=== PATIENT | male | born 1935 | race Caucasian/White ===

== ENCOUNTER 2016-10-07 00:56 | Inpatient (IN) | payer MEDICARE, BC ==
[~2016-10-07] VITALS: Ht 182.9 cm; Wt 81.5 kg
--- NOTE | ~2016-10-07 | CO ---
Unit #: [id number] #: [id number] Patient: YENNY BENJAMIN [id number] [place] [id number] [facility]. [place], [place] [address] [id number] I MR#: [id number] NAME: YENNY BENJAMIN. ROOM: [facility] Age: 81 Sex: M Admission Date: 10/07/2016 : 1935 Attending Physician: Rahul Rodriguez M.D. Primary Care Physician: Herman Kendall D.O. Consultation Date: 10/07/2016 CONSULTATION REPORT REASON FOR CONSULTATION Respiratory failure, mechanical ventilatory support. HISTORY OF PRESENT ILLNESS A 81-year-old gentleman with severe COPD with ongoing active tobacco use. He was hospitalized at [facility] on 09/04/2016. He apparently had been diagnosed with pneumonia, was on antibiotics, failed to improve. There is mention of congestive heart failure, diastolic and was treated and released. Since discharge, he apparently has had persistent shortness of breath. His shortness of breath worsened. EMS was called, he ultimately was intubated. He currently is sedated and cannot add to the history. Family member is present at bedside. He apparently lives alone and family takes charge checking on him. History is vague and he can only tell me a progressive shortness of breath. No definite history of fever, chest pain, hemoptysis, wheezing etc., again that date is unavailable. PAST MEDICAL HISTORY Remarkable for coronary artery disease with stent, peripheral vascular disease, hypertension, COPD, chronic respiratory failure with oxygen started 2 weeks ago, diastolic heart failure, chronic kidney disease, hyperlipidemia, and Quiroz esophagus. HOME MEDICATIONS Very difficult to truly identify. There is a list in the EHR that states Lipitor, Plavix, trazodone, Zyloprim, aspirin, Pulmicort mini-nebs, Zyrtec, Flovent Diskus, hydralazine, Vicodin, Lopressor, Remeron, Protonix, ProAir, Atrovent, Voltaren. There is a list of medicines from previous hospitalization that states he is on Stiolto and No mention of Flovent, so again very confusing on exactly what inhaled therapy he is on. ALLERGIES Morphine which gives rashes. SOCIAL HISTORY Lives alone. Family checks on him. He continues to smoke. His 3 months ago. FAMILY HISTORY Unobtainable. REVIEW OF SYSTEMS Unit #: [id number] #: [id number] Patient: YENNY BENJAMIN Unobtainable. PHYSICAL EXAMINATION GENERAL: Reveals a patient, who is currently on a Versed drip, sedated, but will occasionally wake up and pull it his restraints and pull it life supporting tubes. VITAL SIGNS: He is afebrile. Pulse is 86, respiratory rate is 28, and blood pressure is 160/97, 6 feet tall, 178 pounds. HEENT: Pupils are equal, round, and reactive to light. Sclerae anicteric. Head atraumatic. NECK: Supple. No supraclavicular or cervical adenopathy appreciated. He is orally intubated and has an orogastric tube. CHEST: Markedly decreased breath sounds. No definite crackles or wheeze. Flow volume loops on the ventilator show no definite air flow obstruction. CARDIAC: Reveals distant heart tones. Regular rate and rhythm. No definite pathologic murmur, rub, or gallop. ABDOMEN: Soft and nontender. No hepatomegaly or rebound. EXTREMITIES: Reveal no clubbing, cyanosis, or edema. Capillary blush is delayed. Calves are nontender. NEUROLOGIC: He is sedated; however, he does move all 4s spontaneously. SKIN: Warm and dry. DIAGNOSTIC STUDIES IMAGING STUDIES: Chest x-ray with some coarse interstitial markings, no definite pneumonic infiltrate. LABORATORY RESULTS: Arterial blood gas originally pH 7.23, pCO2 of 56, pO2 of 138. Currently, he has a pH is 7.35, pCO2 of 45, pO2 of 66 on assist control 16, breathing 26, tidal volume of 550, 60%, 5 of PEEP. His FiO2 has been increased to 70%, I presume by RT. BUN is 16, creatinine is 1.4. Troponin mildly elevated at 0.12. BNP is 392. Lactic acid 1.8. Procalcitonin 0.14. INR was normal. White blood cell count was 24, now 15.8; hemoglobin 11.9; platelet count normal. Urinalysis; 2+ protein, no significant pyuria or hematuria. Blood cultures are pending. Sputum is pending receipt. The urine has not been sent for culture. Rhythm strips; sinus. He has biatrial enlargement. No definite acute ischemic changes. IMPRESSION 1. Acute on chronic respiratory failure at this point, unclear etiology. It could be as somewhat worsening diastolic heart failure. 2. Chronic obstructive pulmonary disease with ongoing active tobacco use. 3. Poor database. 4. Chronic respiratory failure, apparently oxygen was started 2 weeks ago. 5. Coronary artery disease with diastolic heart failure per previous records. 6. Peripheral vascular disease. 7. Chronic kidney disease. 8. Possible depression per family as his 3 months ago. 9. Medical problems listed above. PLAN Mechanical ventilatory support. Antibiotics for now. Airways disease. Echocardiogram has been performed and those results to be followed up. I will ask for a noncontrast CT scan of the chest and lower extremity venous Dopplers. I will try to adjust his sedation in order to decrease delirium and increase the chance of appropriate weaning. Certainly, we will need to improve database and review all of his inhaled medicines at the time of discharge. Unit #: [id number] #: [id number] Patient: YENNY BENJAMIN Thank you very much for allowing me to participate in the care of Mr. Benjamin. Dictated by... Celio Kim M.D. JASMYN/lynne TD: 10/07/2016 16:11 JOB #: [id number] CONSULTATION REPORT Page 1 of 1 X Celio Kim MD X CONSULTATION REPORT
--- NOTE | ~2016-10-07 | US84 ---
[id number] [facility] [address] [facility] [address] [place], [place] [address] [id number] I MR#: [id number] Acc #: [id number] NAME: YENNY BENJAMIN : 1935 SEX: M STUDY DATE/TIME: 10/07/2016 19:17 UNIT: [facility] ROOM: [facility] STUDY DESCRIPTION: US LE Veins Complete Jeff Stdy Attending Physician: Rahul Rodriguez M.D. Ordering Physician: Shorty Tony D.O. Primary Care Physician: Herman Kendall D.O. MEDICAL IMAGING REPORT This report is preliminary unless electronic signature is present EXAM Bilateral lower extremity venous ultrasound. HISTORY Bilateral lower extremity swelling for 3 days. FINDINGS Ultrasound examination of the lower extremity veins was performed from the groin to the calf bilaterally with bowser-scale, color Doppler and spectral Doppler evaluation. No DVT or SVT is identified. The visualized veins are patent and compressible. The right peroneal vein was not visualized. IMPRESSION Negative examination. Dictated by... Darrel Yoder M.D. THIS IS AN ELECTRONICALLY VERIFIED REPORT Darrel Yoder M.D. at 10/08/2016 11:03 PM DFRee/bright TD: 10/08/2016 06:11 JOB #: [id number] MEDICAL IMAGING REPORT Page 1 of 1 COPY
--- NOTE | ~2016-10-07 | CR72 ---
[facility] A Service of [facility] & [facility] RADIOLOGY TEXT RESULTS PATIENT: YENNY BENJAMIN LOCATION: [place] [id number] : 37 UNIT #: [id number] AGE: [address]: EDA SCHMITZ V SEX: M ORDER DR: [id number] [facility] [address] [facility]. [place], [place] [address] [id number] I MR#: [id number] Acc #: [id number] NAME: YENNY BENJAMIN. : 1935 SEX: M STUDY DATE/TIME: 10/08/2016 5:31 UNIT: [facility] ROOM: [facility] STUDY DESCRIPTION: CR Chest Single View Portable Attending Physician: Eda Schmitz M.D. Ordering Physician: Celio Kim M.D. Primary Care Physician: Herman Kendall D.O. MEDICAL IMAGING REPORT This report is preliminary unless electronic signature is present EXAM Portable chest INDICATIONS Respiratory failure follow up. PROCEDURE Frontal view chest. COMPARISON STUDIES 10/07/2016 FINDINGS Mild cardiomegaly. Interstitial coarsening is stable. No new dense consolidation. No visible pneumothorax. Dictated by... Chris Naqvi M.D. THIS IS AN ELECTRONICALLY VERIFIED REPORT Chris Naqvi M.D. at 10/08/2016 9:53 PM YONID/zane TD: 10/08/2016 12:13 JOB #: [id number] MEDICAL IMAGING REPORT Page 1 of 1 COPY
--- NOTE | ~2016-10-07 | CT57 ---
[facility] A Service of [facility] & [facility] RADIOLOGY TEXT RESULTS PATIENT: YENNY BENJAMIN LOCATION: [address] : 37 UNIT #: [id number] AGE: [address]: EDA SCHMITZ V SEX: M ORDER DR: [id number] [facility] [address] [facility]. [place], [place] [address] [id number] I MR#: [id number] Acc #: [id number] NAME: YENNY BENJAMIN : 1935 SEX: M STUDY DATE/TIME: 10/07/2016 15:17 UNIT: [facility] ROOM: [facility] STUDY DESCRIPTION: CT Chest Wo Cont Attending Physician: Eda Schmitz M.D. Ordering Physician: Celio Kim M.D. Primary Care Physician: Herman Kendall D.O. MEDICAL IMAGING REPORT This report is preliminary unless electronic signature is present EXAM CT chest without contrast HISTORY Shortness of air, onset today, concern for pneumonia. History of AAA repair 2003 and cardiac stents. FINDINGS Axial images performed through the chest without contrast. Multiplanar reconstructed images reviewed at a workstation. This CT exam was performed with one or more of the following radiation dose reduction techniques: Automatic exposure control, adjustment of mA and/or kV according to patient size, and iterative reconstruction. Examination demonstrates marked hyperinflation with areas of patchy hyperlucency and thickening in the interlobular septa compatible with underlying emphysema and fibrosis. No acute airspace disease or consolidation, no effusions. No mass lesions. Mild tracheobronchomegaly. Patient is intubated with the tube in expected position. Heart size within normal limits. Coronary and aortic atherosclerotic changes noted. Nasogastric tube noted within the stomach. The upper abdomen remarkable for a partially visualized endoluminal stent grafting of an abdominal aortic aneurysm. Mild aneurysmal dilatation of the proximal abdominal aorta. Nasogastric tube noted within the stomach. Mild scoliosis. IMPRESSION 1. No acute airspace disease or consolidation to suggest pneumonia. 2. Severe emphysema and fibrosis, which may be a contributing factor to the patient's symptoms. Patient also demonstrates evidence of chronic bronchitis. STS. [facility] A Service of [facility] & [facility] RADIOLOGY TEXT RESULTS PATIENT: YENNY BENJAMIN LOCATION: [address] : 37 UNIT #: [id number] AGE: [address]: EDA SCHMITZ V SEX: M ORDER DR: Dictated by... Lizbeth Marcus M.D. THIS IS AN ELECTRONICALLY VERIFIED REPORT Lizbeth Marcus M.D. at 10/08/2016 7:29 AM Malini TD: 10/07/2016 23:37 JOB #: [id number] MEDICAL IMAGING REPORT Page 1 of 1 COPY
--- NOTE | ~2016-10-07 | CR72 ---
[facility] A Service of [facility] RADIOLOGY TEXT RESULTS PATIENT: YENNY BENJAMIN LOCATION: [address] : 37 UNIT #: [id number] AGE: [address]: EDA SCHMITZ V SEX: M ORDER DR: [id number] [facility] [address] [facility]. [place], [place] [address] [id number] I MR#: [id number] Acc #: [id number] NAME: YENNY BENJAMIN. : 1935 SEX: M STUDY DATE/TIME: 10/07/2016 1:16 UNIT: [facility] ROOM: [facility] STUDY DESCRIPTION: CR Chest Single View Portable Attending Physician: Eda Schmitz M.D. Ordering Physician: Shorty Tony D.O. Primary Care Physician: Herman Kendall D.O. MEDICAL IMAGING REPORT This report is preliminary unless electronic signature is present EXAM Portable chest INDICATION Respiratory distress tonight. PROCEDURE Frontal view chest. COMPARISON 08/31/2012. FINDINGS Mild cardiomegaly similar to the previous study. Chronic-appearing interstitial coarsening both lungs. No dense consolidation. There is an ET tube in place distal tip is approximately 8.8 cm above the jesusita positioned at the thoracic inlet. No pneumothorax. IMPRESSION 1. Chronic-appearing interstitial coarsening and cardiomegaly. 2. ET tube is at the thoracic inlet. Dictated by... Chris Naqvi M.D. THIS IS AN ELECTRONICALLY VERIFIED REPORT Chris Naqvi M.D. at 10/07/2016 9:59 PM EED/dianelys TD: 10/07/2016 09:53 JOB #: [id number] [facility] A Service [facility] RADIOLOGY TEXT RESULTS PATIENT: YENNY BENJAMIN LOCATION: [place] [address] : 37 UNIT #: [id number] AGE: [address]: EDA SCHMITZ V SEX: M ORDER DR: MEDICAL IMAGING REPORT Page 1 of 1 COPY
--- NOTE | ~2016-10-07 | DS ---
Unit #: [id number] #: [id number] Patient: YENNY BENJAMIN [id number] [address] [place], [place] [address] [id number] I MR#: [id number] NAME: YENNY BENJAMIN. ROOM: [facility] Age: 81 Sex: M Admission Date: 10/07/2016 : 1935 Discharge Date: 10/10/2016 Attending Physician: Rahul Rodriguez M.D. Primary Care Physician: Herman Kendall D.O. DISCHARGE SUMMARY DISCHARGE DIAGNOSES 1. Acute on chronic respiratory failure. 2. Hypertension. 3. Coronary artery disease with history of angioplasty in the past. 4. Peripheral vascular disease. 5. Chronic kidney disease. 6. Hyperlipidemia. 7. Chronic obstructive pulmonary disease. CONSULTATIONS Pulmonary consult, Dr. Kim. HOSPITAL COURSE This is a 81-year-old male who was admitted on 10/07/2016 with increasing shortness of air, gradually getting worse. EMS was initially called. A CPAP trial was given. He failed the CPAP trial. Subsequently he was intubated and brought into the emergency room where he was very hypertensive, also. He was treated with IV antibiotics, IV Solu-Medrol, seen by pulmonary and subsequently extubated successfully. He is stable at this time to be discharged home to be followed by pulmonary and primary care physician as an outpatient. HOME MEDICATIONS ON DISCHARGE 1. Albuterol sulfate 2 puffs q.6 hours. 2. Budesonide 0.5 mg inhalation daily. 3. Flovent 1 spray inhalation daily. 4. Remeron 15 mg daily. 5. Trazodone 50 mg at bedtime. 6. Zyrtec 10 mg daily. 7. Atorvastatin 80 mg daily. 8. Tiotropium bromide and olodaterol hydrochloride 1 inhalation daily. 9. Metoprolol 50 mg p.o. b.i.d. 10. Hydralazine 25 mg b.i.d. 11. Zithromax 250 mg p.o. daily for 4 days. 12. Allopurinol 100 mg daily. 13. Aspirin 81 mg daily. 14. Hydrocodone 7.5/325 mg, which is Vicodin, 1 tablet p.o. q.4 as needed. FOLLOWUP 1. Follow up with Dr. Kim in 1-2 weeks. 2. Follow with primary care physician in 1-2 weeks. CONDITION AT DISCHARGE Unit #: [id number] #: [id number] Patient: YENNY BENJAMIN Stable. DISPOSITION To home. Dictated by... Meena Medina/cali TD: 10/12/2016 09:18 JOB #: [id number] DISCHARGE SUMMARY Page 1 of 1 X Kayla Villavicencio MD X DISCHARGE SUMMARY
--- NOTE | ~2016-10-07 | HP ---
Unit #: [id number] #: [id number] Patient: YENNY BENJAMIN [id number] [address] [place], [place] [address] [id number] I MR#: [id number] NAME: YENNY BENJAMIN. ROOM: [facility] Age: 81 Sex: M Admission Date: 10/07/2016 : 1935 Attending Physician: Anjali Wheeler M.D. Primary Care Physician: Herman Kendall D.O. HISTORY AND PHYSICAL CHIEF COMPLAINT Acute on chronic respiratory failure. HISTORY This 81-year-old male with CAD and recent PCI and stent, peripheral vascular disease, hypertension, O2 dependent COPD, is admitted for respiratory failure. The patient currently is intubated. History is obtained from daughter by bedside. The patient was recently admitted to [facility] three weeks ago for PCI and stent. Over the past week has been experiencing increasing shortness of breath. Last evening, called his daughter. The patient appeared to be very short of breath. EMS was then called who placed the patient on CPAP. The patient failed CPAP and was intubated in the field. He was brought to this emergency department with a blood pressure of 199/135, heart rate 120. He was initially placed on a propofol drip but became hypotensive; therefore, now is on a versed drip but is a bit agitated. Was bolused with a liter of saline. On examination, the patient sounds to be quite congested and does have some bronchospasm. His daughter tells me that he was recently treated for pneumonia. Sputum, however, appears to be clear. Chest x-ray performed shows chronic appearing interstitial changes and chronic cardiomegaly. BNP is 392. PAST MEDICAL HISTORY 1. CAD with previous MO in 1997. The patient had a stent in 1997, then repeat angioplasty 09/2011. Three weeks ago he had PCI and stent performed. 2. Peripheral vascular disease, status post abdominal aortic aneurysm repair. 3. Chronic kidney disease. 4. Hyperlipidemia. 5. Hypertension. 6. COPD, on home oxygen. 7. DJD. 8. 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 9. Appendectomy. ALLERGIES Possibly allergic to morphine. HOME MEDICATIONS I have a Med Rec sheet which lists: Unit #: [id number] #: [id number] Patient: YENNY BENJAMIN 1. Lipitor 80 mg q. h.s. 2. Plavix 75 mg daily. 3. Trazodone 50 mg q. h.s. 4. Zyloprim 100 mg daily. 5. Aspirin 81 mg daily. 6. Pulmicort b.i.d. 7. Zyrtec 10 mg daily. 8. Flovent Diskus. 9. Glycopyrrolate, two puffs b.i.d. 10. Hydralazine 25 mg b.i.d. 11. Vicodin 7.5 mg q.4 hours as needed. 12. Lopressor 50 mg b.i.d. 13. Remeron SolTab 15 mg q. h.s. 14. Protonix 40 mg daily. 15. ProAir every six hours as needed. 16. Atrovent. 17. Voltaren topical gel. FAMILY HISTORY CAD. SOCIAL HISTORY The patient is living alone but his family is around daily. His 06/2016. He smokes one pack per day of tobacco, does not drink alcohol. REVIEW OF SYSTEMS Unable to obtain as patient currently is intubated. PHYSICAL EXAMINATION GENERAL APPEARANCE: Intubated 81-year-old male who is mildly agitated despite a versed drip. VITAL SIGNS: Temperature 98. Initial heart rate 120, now is 90. O2 saturation is 91% on FIO2 of 50%. Blood pressure was 199/135, currently is 179/109. HEENT: Eyes PERRLA. Pharynx - the patient is orally intubated. NECK: Supple without adenopathy or thyromegaly. CHEST: Expiratory wheeze and rhonchi throughout. CARDIAC: Normal S1 and S2 without definite murmur. ABDOMEN: Bowel sounds are diminished, nontender. No hepatosplenomegaly, tenderness or masses. EXTREMITIES: Without mild bilateral pedal edema. Pedal pulses are diminished. DIAGNOSTIC STUDIES LABORATORY: Admission labs - hematocrit is 41.7, white blood count is 24, normal platelet count. Three bands are noted. SMA-12 - glucose 201, creatinine 1.5. The patient's baseline is about 1.6. Calcium is 8.1, albumin is 3.4. BNP is 400. Lactic acid normal. Cardiac markers are negative. ABG - pH 7.23, pCO2 55.9, pO2 138 on tidal volume 500, PEEP of 5, AC I believe of 16, FIO2 50%. IMAGING: Chest x-ray - chronic appearing interstitial coarsening and stable cardiomegaly. Unit #: [id number] #: [id number] Patient: YENNY BENJAMIN CARDIOVASCULAR: EKG - sinus rhythm, rate 98 with small Q's inferiorly. Interventricular conduction delay, nonspecific ST wave abnormalities. ASSESSMENT 1. Acute on chronic respiratory failure: I am unsure if this is related to patient's chronic obstructive pulmonary disease with possible occult hospital-acquired pneumonia. Could have an element of congestive heart failure. Less likely is PE. 2. Recent percutaneous coronary intervention and stent at [facility] three weeks ago. 3. Accelerated hypertension. 4. Chronic obstructive pulmonary disease, on home oxygen, with ongoing tobacco use. 5. Peripheral vascular disease, status post abdominal aortic aneurysm repair. 6. Hyperlipidemia. 7. Quiroz esophagus. 8. Chronic kidney disease. 9. Recent of spouse. PLANS 1. Duo-Nebs, antibiotics, steroids. Will give one dose of Lasix. 2. Serial cardiac enzymes, obtain echo and recent records from [facility]. 3. Venous Dopplers of the legs. 4. Check procalcitonin level, sputum blood cultures. 5. Pulmonary consultation. 6. Sedation. 7. DVT and gastritis prophylaxis. 8. Blood pressure control. 9. Obtain Accu-Cheks while on steroids. 10. Further workup and consultants depending on above. Critical care time spent on evaluating this patient was 40 minutes. Dictated by Meena Gastelum/dee TD: 10/07/2016 05:19 JOB #: [id number] HISTORY AND PHYSICAL Page 1 of 1 X Anjali Wheeler MD HISTORY AND PHYSICAL
--- NOTE | ~2016-10-07 | EKG ---
PATIENT: YENNY BENJAMIN UNIT #: [id number] Ventricular Rate: 97 BPM Atrial Rate: 97 BPM P-R Interval: 170 ms QRS Duration: 128 ms Q-T Interval: 406 ms QTC Calculation(Bezet): 515 ms P Aubrey: 89 degrees Calculated R Aubrey: 101 degrees Calculated T Aubrey: 60 degrees Diagnosis Line: Normal sinus rhythm Diagnosis Line: Biatrial enlargement Diagnosis Line: Rightward axis Diagnosis Line: Non-specific intra-ventricular conduction block Diagnosis Line: Abnormal ECG Diagnosis Line: When compared with ECG of 01-SEP-2012 05:45, Diagnosis Line: Vent. rate has increased BY 33 BPM Diagnosis Line: Non-specific intra-ventricular conduction block Diagnosis Line: has replaced Right bundle branch block Diagnosis Line: Confirmed by RIP GUSTAFSON MD ([id number]) on Diagnosis Line: 10/09/2016 7:26:39 AM INTERPRETING MD: JANAY WHATLEY
--- NOTE | ~2016-10-07 | A ---
[facility] Nutrition Therapy DATE: 10/07/16 Patient: YENNY BENJAMIN Physician: THELMA Address: [address] [place] [address] Room/Bed: [address], Zip: [place] [address] Admit Date: 10/07/16 Date of : [birth year] Height: 6 0 Weight: 178 81 NUTRITIONAL ASSESSMENT: REASON: NPO in ICU 81 y/o male admitted for respiratory failure PMH: CAD w/ NC, CKD, HLD, HTN, COPD, ?CHF Anthropometrics: ht: 6'0" wt: 178# (81 kg) BMI 24 Labs: Glu 139, Accucheck 129, Ca++ 8.1, GFR 47.5 Meds: versed, fentanyl, NaCl, lovenox, protonix IV, novoLOG, solu-medrol, zofran I/O & Bowel function: 148/210. BM unknown Skin Integrity: bruise- RAC, redness- RFA. Edema: NEIL feet- 1+ Estimated Nutrition Needs: 5654-8961 kcal (25-30 kcal/kg) 89-121 g protein (1.1-1.5 g /kg) fluids consistent with kcals or per MD Assessment: Chart reviewed, events noted. Pt is intubated and sedated in ICU. Pt has OG tube. Pt admitted for respiratory failure and lives alone at home. RD corporate intern spoke with pt's daughter in room, she reports the pt has had a decreased appetite since his 3 months ago, he follows no restrictive diet at home. Pt has Dx of CKD, but has never received dialysis. RN reports there was a possible diagnosis of pre-diabetes for this pt while at a different hospital, although none noted in [facility]. Please see recommendations, RD to continue to follow. Dx: Inadequate oral intake r/t current condition AEB pt on vent, NPO Intervention: 1. NPO 2. Enteral nutrition recommendation Monitoring, Evaluation and Goals: 1. Enteral nutrition; once medically feasible, begin enteral nutrition support and provide >80% estimated goal volume 2. Labs; phos, BUN, creat, Glu 3. Weight; promote weight maintenance [facility] Nutrition Therapy DATE: 10/07/16 Patient: YENYN BENJAMIN Physician: THELMA Address: [address] [place] [address] Room/Bed: [facility], Zip: [place] [address] Admit Date: 10/07/16 Date of : [birth year] Height: 6 0 Weight: 178 81 Recommendations: 1. Once medically feasible, begin enteral nutrition support of Jevity 1.5 @ 20 mL/hr and advance 10 mL q 8 hours to goal rate of 60 mL/hr x 24 hours. This will provide 2160 kcal, 91 g protein, 1094 mL h20. Free h20 flushes per MD. 2. If pt extubated, advance diet as tolerated and per ECHOCARDIOGRAPH TECH recommendations to heart healthy. 3. Obtain new HgbA1c to further assess pt's possible diabetes. RD will f/u per protocol as pt is at moderate nutritional risk. Respectfully, ALDO PAYAN, international travel consultant Phuong Vo RD, LD Food and Nutritional Services [facility] cc: client file
[~2016-10-07 00:56] MED LIST: AMLODIPINE BESYL5 MG PO; ASPIRIN PO; CERTAGEN PO; CLOPIDOGREL75 MG PO; FENOFIBRATE160 MG PO; FISH OIL CONC1000 MG; HYDRALAZINE HCL25 MG PO; LISINOPRIL-HCTZ1 T15 PO; METOPROLOL PO; METOPROLOL TAR25 MG PO; OMACOR PO; PROTONIX PO; SIMVASTATIN20 MG PO; SULAR PO; TOPROL XL PO; TRICOR PO; VIT D PO; VITAMIN D50000 UNIT PO; ZOCOR PO
[2016-10-07 01:28] LABS: BASOPHIL# 0.2 X10e3 (0-0.3); BASOPHIL% 0.6 % (0-2.5); EOSINOPHIL# 1.1 X10e3 (0-0.7); EOSINOPHIL% 4.6 % (0.0-7.0); HEMATOCRIT 41.7 % (38.0-50.0); HEMOGLOBIN 13.1 gm/dL (13.0-16.0); LYMPHOCYTE# 7.5 X10e3 (1.0-3.5); LYMPHOCYTE% 31.4 % (17.0-45.0); MEAN CELL VOLUME 94.1 FL (83-96); MEAN CORPUSCULAR HEMOGLOBIN 29.6 PG (28-34); MEAN CORPUSCULAR HGB CONC 31.5 g/dL (30-36); MEAN PLATELET VOLUME 10.1 FL (6.5-11.5); MONOCYTE# 1.6 X10e3 (0-1.0); MONOCYTE% 6.8 % (3.0-12.0); NEUTROPHIL# 13.6 X10e3 (1.5-7.1); NEUTROPHIL% 56.6 % (40-75); PLATELET COUNT 373 X10e3 (140-420); RED BLOOD COUNT 4.43 X10e (3.90-5.60); RED CELL DISTRIBUTION WIDTH 16.9 % (11.0-15.5)
[2016-10-07 01:29] LABS: DIFF IND YES
[2016-10-07 01:38] LABS: POC - TROPONIN <0.05 ng/mL (<=0.05)
[2016-10-07 01:40] LABS: ARTERIAL BLOOD GAS CARBOXY HB 1.9 %sat (0.0-9.0); ARTERIAL BLOOD GAS HCO3 23.6 mmol/L; ARTERIAL BLOOD GAS MET HB 0.8 %sat (0.0-2.0); ARTERIAL BLOOD GAS PCO2 55.9 mmHg (35.0-45.0); ARTERIAL BLOOD GAS pH 7.234 (7.350-7.450)
[2016-10-07 01:41] LABS: ARTERIAL BLOOD GAS ALLEN TEST NORMAL; ARTERIAL BLOOD GAS ART SITE LEFT RADIAL; ARTERIAL BLOOD GAS DELIVERY VENT; ARTERIAL BLOOD GAS VENT MODE AC; ARTERIAL DRAW? YES
[2016-10-07] MEDS ORDERED: ZYLOPRIM100 MG PO (01:53)
[2016-10-07] MEDS ORDERED: ASPIRIN81 MG PO (01:53)
[2016-10-07] MEDS ORDERED: DESYREL50 MG PO (01:53)
[2016-10-07] MEDS ORDERED: ATORVASTATIN CA80 MG PO (01:53)
[2016-10-07] MEDS ORDERED: CLOPIDOGREL75 MG PO (01:53)
[2016-10-07] MEDS ORDERED: ZYRTEC10 M1 PO (01:54)
[2016-10-07] MEDS ORDERED: FLOVENT DISKUS50 MCG INH (01:54)
[2016-10-07] MEDS ORDERED: BUDESONIDE0.5 MG/2 M INH (01:54)
[2016-10-07] MEDS ORDERED: [UNRECOGNIZED DRUG - OTHER] INH (01:55)
[2016-10-07] MEDS ORDERED: REMERON SOLTAB15 MG PO (01:56)
[2016-10-07] MEDS ORDERED: VICODIN ES 7.51 EAC1 PO (01:56)
[2016-10-07] MEDS ORDERED: HYDRALAZINE HCL25 MG PO (01:56)
[2016-10-07] MEDS ORDERED: LOPRESSOR PO (01:56)
[2016-10-07] MEDS ORDERED: PANTOPRAZOLE SO40 MG PO (01:57)
[2016-10-07] MEDS ORDERED: PROAIR RESPICL90 MCG INH (01:57)
[2016-10-07] MEDS ORDERED: VOLTAREN100 GM TOP (01:58)
[2016-10-07] MEDS ORDERED: STIOLTO RESPIMAT4 GM INH (01:58)
[2016-10-07 02:30] LABS: ANISOCYTOSIS SL; PLATELET ESTIMATE NORMAL (NORMAL)
[2016-10-07 02:31] LABS: STOMATOCYTE PRESENT
[2016-10-07 02:34] LABS: INR 1.2; PARTIAL THROMBOPLASTIN TIME 29.6 SECONDS (23.5-31.3); PROTHROMBIN TIME (PATIENT) 12.8 SECONDS (10.0-11.7)
[2016-10-07 02:37] LABS: ALBUMIN SERUM 3.4 g/dL (3.5-5.0); BILIRUBIN,TOTAL 1.2 mg/dL (0.2-2.0); BUN/CREATININE RATIO 10.66; CALCIUM SERUM 8.1 mg/dL (8.4-10.2); CREATININE SERUM 1.5 mg/dL (0.6-1.4); GLOM FILT RATE Estimated 43.7 mL/min (>60); PROTEIN TOTAL SERUM 7.4 g/dL (6.0-8.3)
[2016-10-07 03:16] LABS: POC - CKMB 1.3 ng/mL (0.0-7.9); POC - TROPONIN <0.05 ng/mL (<=0.05)
[2016-10-07 04:24] LABS: URINE SOURCE CLEAN CATCH
[2016-10-07 04:24] LABS: ARTERIAL BLD GAS O2 SATURATION 90.6 % (90.0-100.0); ARTERIAL BLOOD GAS HCO3 24.8 mmol/L; ARTERIAL BLOOD GAS MET HB 0.9 %sat (0.0-2.0); ARTERIAL BLOOD GAS PCO2 44.7 mmHg (35.0-45.0); ARTERIAL BLOOD GAS pH 7.352 (7.350-7.450)
[2016-10-07 04:27] LABS: ARTERIAL BLOOD GAS ALLEN TEST NORMAL; ARTERIAL BLOOD GAS ART SITE LEFT RADIAL; ARTERIAL BLOOD GAS DELIVERY VENT; ARTERIAL BLOOD GAS PO2 66.1 mmHg (80.0-100); ARTERIAL BLOOD GAS VENT MODE AC; ARTERIAL DRAW? YES
[2016-10-07 04:29] LABS: URINE APPEARANCE CLEAR; URINE BILIRUBIN NEG (NEG); URINE BLOOD TRACE (NEG); URINE COLOR YELLOW; URINE GLUCOSE NEG (NEG); URINE KETONE NEG (NEG); URINE LEUKOCYTE ESTERASE NEG (NEG); URINE NITRATE NEG (NEG); URINE PROTEIN 2+ (NEG); URINE SPECIFIC GRAVITY 1.009 (1.003-1.035); URINE UROBILINOGEN 0.2 MG/DL (NEG)
[2016-10-07 04:31] LABS: URINE BACTERIA AUWI NEG (NEGATIVE); URINE SQUAMOUS EPITHELIAL CELL OCC /[HPF]; UWBCS1 AUWI 0-2 (0-5)
[2016-10-07 04:45] LABS: CULTURE INDICATED? NO
[2016-10-07 08:38] LABS: BASOPHIL% 0.1 % (0-2.5); EOSINOPHIL# 0.2 X10e3 (0-0.7); EOSINOPHIL% 1.5 % (0.0-7.0); HEMATOCRIT 37.5 % (38.0-50.0); HEMOGLOBIN 11.9 gm/dL (13.0-16.0); LYMPHOCYTE# 1.3 X10e3 (1.0-3.5); LYMPHOCYTE% 7.9 % (17.0-45.0); MEAN CELL VOLUME 94.4 FL (83-96); MEAN CORPUSCULAR HGB CONC 31.8 g/dL (30-36); MEAN PLATELET VOLUME 10.1 FL (6.5-11.5); MONOCYTE# 0.5 X10e3 (0-1.0); MONOCYTE% 3.3 % (3.0-12.0); NEUTROPHIL# 13.7 X10e3 (1.5-7.1); NEUTROPHIL% 87.2 % (40-75); PLATELET COUNT 235 X10e3 (140-420); RED BLOOD COUNT 3.97 X10e (3.90-5.60); RED CELL DISTRIBUTION WIDTH 16.5 % (11.0-15.5); WHITE BLOOD COUNT 15.8 X10e3 (4.0-10.5)
[2016-10-07 08:41] LABS: DIFF IND NO
[2016-10-07 08:55] LABS: BUN/CREATININE RATIO 11.42; CALCIUM SERUM 8.1 mg/dL (8.4-10.2); CREATININE SERUM 1.4 mg/dL (0.6-1.4); GLOM FILT RATE Estimated 47.5 mL/min (>60); POTASSIUM 4.5 mmol/L (3.5-5.1)
[2016-10-07 09:12] LABS: %MB 5.7 % (0.0-4.0); MB 3.6 ng/ml
[2016-10-07 13:00] LABS: CK TOTAL 50 IU/L (36-174)
[2016-10-08 04:33] LABS: ARTERIAL BLOOD GAS CARBOXY HB 0.7 %sat (0.0-9.0); ARTERIAL BLOOD GAS HCO3 23.2 mmol/L; ARTERIAL BLOOD GAS MET HB 0.7 %sat (0.0-2.0); ARTERIAL BLOOD GAS PCO2 40.5 mmHg (35.0-45.0); ARTERIAL BLOOD GAS pH 7.366 (7.350-7.450)
[2016-10-08 04:36] LABS: ARTERIAL BLOOD GAS ALLEN TEST NORMAL; ARTERIAL BLOOD GAS ART SITE LEFT RADIAL; ARTERIAL BLOOD GAS DELIVERY VENT; ARTERIAL BLOOD GAS VENT MODE AC; ARTERIAL DRAW? YES
[2016-10-08 05:20] LABS: HEMATOCRIT 31.8 % (38.0-50.0); HEMOGLOBIN 10.2 gm/dL (13.0-16.0); LYMPHOCYTE# 0.6 X10e3 (1.0-3.5); MEAN CELL VOLUME 93.5 FL (83-96); MEAN CORPUSCULAR HGB CONC 32.1 g/dL (30-36); MEAN PLATELET VOLUME 10.8 FL (6.5-11.5); MONOCYTE# 0.3 X10e3 (0-1.0); MONOCYTE% 2.2 % (3.0-12.0); NEUTROPHIL# 13.8 X10e3 (1.5-7.1); NEUTROPHIL% 93.8 % (40-75); PLATELET COUNT 205 X10e3 (140-420); RED CELL DISTRIBUTION WIDTH 16.4 % (11.0-15.5); WHITE BLOOD COUNT 14.7 X10e3 (4.0-10.5)
[2016-10-08 05:36] LABS: DIFF IND NO
[2016-10-08 06:09] LABS: CALCIUM SERUM 7.9 mg/dL (8.4-10.2); POTASSIUM 3.7 mmol/L (3.5-5.1)
[2016-10-08 06:20] LABS: CREATININE SERUM 1.5 mg/dL (0.6-1.4); GLOM FILT RATE Estimated 43.7 mL/min (>60)
[2016-10-08 09:18] LABS: ARTERIAL BLD GAS O2 SATURATION 98.7 % (90.0-100.0); ARTERIAL BLOOD GAS CARBOXY HB 0.6 %sat (0.0-9.0); ARTERIAL BLOOD GAS HCO3 22.5 mmol/L; ARTERIAL BLOOD GAS MET HB 0.6 %sat (0.0-2.0); ARTERIAL BLOOD GAS PCO2 33.7 mmHg (35.0-45.0); ARTERIAL BLOOD GAS pH 7.433 (7.350-7.450)
[2016-10-08 09:19] LABS: ARTERIAL BLOOD GAS ALLEN TEST NORMAL; ARTERIAL BLOOD GAS ART SITE LEFT RADIAL; ARTERIAL BLOOD GAS DELIVERY VENT; ARTERIAL BLOOD GAS VENT MODE CPAP; ARTERIAL DRAW? YES
[2016-10-08 10:49] LABS: ARTERIAL BLOOD GAS CARBOXY HB 0.8 %sat (0.0-9.0); ARTERIAL BLOOD GAS HCO3 23.3 mmol/L; ARTERIAL BLOOD GAS MET HB 0.7 %sat (0.0-2.0); ARTERIAL BLOOD GAS pH 7.384 (7.350-7.450)
[2016-10-08 10:50] LABS: ARTERIAL BLOOD GAS ALLEN TEST NORMAL; ARTERIAL BLOOD GAS ART SITE LEFT RADIAL; ARTERIAL BLOOD GAS DELIVERY NASAL CANNULA; ARTERIAL BLOOD GAS PO2 78.5 mmHg (80.0-100); ARTERIAL DRAW? YES
[2016-10-09 06:00] LABS: BASOPHIL% 0.1 % (0-2.5); HEMATOCRIT 32.5 % (38.0-50.0); HEMOGLOBIN 10.4 gm/dL (13.0-16.0); LYMPHOCYTE# 0.6 X10e3 (1.0-3.5); MEAN CORPUSCULAR HEMOGLOBIN 29.8 PG (28-34); MEAN CORPUSCULAR HGB CONC 32.1 g/dL (30-36); MEAN PLATELET VOLUME 10.5 FL (6.5-11.5); MONOCYTE# 0.4 X10e3 (0-1.0); MONOCYTE% 2.4 % (3.0-12.0); NEUTROPHIL# 17.3 X10e3 (1.5-7.1); NEUTROPHIL% 94.5 % (40-75); PLATELET COUNT 187 X10e3 (140-420); RED CELL DISTRIBUTION WIDTH 16.3 % (11.0-15.5); WHITE BLOOD COUNT 18.3 X10e3 (4.0-10.5)
[2016-10-09 06:01] LABS: DIFF IND YES
[2016-10-09 06:18] LABS: CALCIUM SERUM 8.1 mg/dL (8.4-10.2); CREATININE SERUM 1.5 mg/dL (0.6-1.4); GLOM FILT RATE Estimated 43.7 mL/min (>60)
[2016-10-09 06:22] LABS: ANISOCYTOSIS SL; PLATELET ESTIMATE NORMAL (NORMAL)
[2016-10-10] MEDS ORDERED: AZITHROMYCIN250 MG PO (11:09)
[2016-10-10] MEDS ORDERED: FLOVENT HFA INH (11:12)
[2016-10-10] MEDS ORDERED: PROAIR HFA8.5 GM INH (11:14)
== END 2016-10-10 13:54 | disposition home health service (06) | DRG 208 ==
LOC: CED 00:56 → CEDOF 03:20 → CED 03:33 → CEDOF 03:33 → CICCU3 04:54 → CEDOF 04:54 → CICCU3 07:04 → C3A PCU 10-09 15:58
PROVIDERS: Emergency Medicine; Internal Medicine
PROC: 0BH17EZ Insertion of Endotracheal Airway into Trachea, Via Natural or Artificial Opening (ICD-10-PCS; principal; 2016-10-07)
PROC: 5A1945Z Respiratory Ventilation, 24-96 Consecutive Hours (ICD-10-PCS; 2016-10-07)
DX: J96.21 Acute and chronic respiratory failure with hypoxia (principal); Z99.81 Dependence on supplemental oxygen; J44.9 Chronic obstructive pulmonary disease, unspecified; I13.0 Hypertensive heart and chronic kidney disease with heart failure and stage 1 through stage 4 chronic kidney disease, or unspecified chronic kidney disease; I50.32 Chronic diastolic (congestive) heart failure; J96.22 Acute and chronic respiratory failure with hypercapnia; N18.9 Chronic kidney disease, unspecified; I73.9 Peripheral vascular disease, unspecified; E78.5 Hyperlipidemia, unspecified; I25.2 Old myocardial infarction; Z82.49 Family history of ischemic heart disease and other diseases of the circulatory system; K22.70 Barrett's esophagus without dysplasia; F17.210 Nicotine dependence, cigarettes, uncomplicated; G47.00 Insomnia, unspecified; F32.9 Major depressive disorder, single episode, unspecified; F41.9 Anxiety disorder, unspecified
CPT/HCPCS: 36600; 51702; 71010; 71250; 80048; 80053; 80202; 81003; 82308; 82550; 82553; 82803; 82947; 83605; 83880; 84484; 85025; 85610; 85730; 87040; 87070; 87077; 87205; 93005; 93306; 93970; 94002; 94003; 94640; 94664; 94760; 94761; 96361; 96365; 96375; 96376; 99291; C9113; J0456; J1650; J1815; J1940; J2250; J2543; J2920; J3010; J3370; J3490